=== PATIENT | female | born 1970 | race Two or more races ===

== ENCOUNTER 2024-09-07 14:13 | Outpatient (REF) | payer OTHER, SELFPAY ==
[2024-09-07 16:32] LABS: Vitamin B12 475 pg/mL (200-900)
[2024-09-08 07:47] LABS: Syphilis Screen Nonreactive (Nonreactive)
[2024-09-11 17:19] LABS: Lyme Abs Screen <0.90 index
== END 2024-09-07 14:14 | disposition home or self-care (01) ==
LOC: HO.LAB 14:13
PROVIDERS: PCP Internal Medicine; Visit Provider Psychiatry & Neurology Neurology
DX: G93.40 Encephalopathy, unspecified (principal)
CPT/HCPCS: 36415; 82607; 86617; 86618; 86780